=== PATIENT | female | born 1990 | race Caucasian/White ===

== ENCOUNTER 2020-02-28 20:55 | Emergency (ER) | payer BC, SELFPAY ==
[2020-02-28 20:59] VITALS: BP 124/90; PULSE 89; RESP 16; TEMP 36.6; O2SAT 97; BMI 18.5
--- NOTE | 2020-02-28 21:37 | W.ED.ABDPA2 ---
Documented by User: Pooja Perez MD 02/28/20 23:37 HPI - Abdominal Pain General: Chief Complaint: Abdominal Pain Stated Complaint: abd pain Time Seen by Provider: 02/28/20 21:14 History of Present Illness: HPI narrative: Patient is a 29 year old female presenting with burning abdominal pain for 2 days. She reports that the pain started on Monday evening and hasn't gone away. She has had similar pain in the past, but usually it resolves within half a day or so. She is worried that she might have an ulcer and takes a lot of ibuprofen. She has been seen here for this pain in the past and it improves with a GI cocktail. She does not take anything for acid reflux. 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 She is seeing the [facility] for that. She was diagnosed in November and had a 5 day course of IVIG which she says didn't really make a difference. She was supposed to go back in January but the visit was impossible due to the COVID outbreak. She is scheduled now to go back in another week and a half. MD elicited complaint: abdominal pain Pertinent past history: none Onset (ago): day(s) (2) Pain Consistency: constant Location: Epigastric Severity: similar to previous episodes Quality: burning Migration to: no migration Relieving factors: medication (pepto bismol) Associated Symptoms: Reports diarrhea (a little bit when the pain started ) and nausea; Denies chills, fever(s) and vomiting Review of Systems General: Reports: 10 or more systems reviewed and unremarkable except in HPI and below Const: Reports: body aches (chronic related to her CIDP), fatigue and malaise; Denies: fever(s) or chills Card: Denies: chest pain Resp: Denies: dyspnea, productive cough or non-productive cough GI: Reports: abdominal pain, nausea and diarrhea (a little bit when the pain started ); Denies: vomiting : Denies: difficulty voiding Neuro: Reports: headache(s), weakness in extremities (ongoing for the past year related to CIDP), difficulty walking and frequent falls PFSH ED PFSH: Social History Smoking and tobacco status: never smoked Physical Exam Const: COMMON NORMALS: no acute distress, patient oriented x3 and alert GENERAL APPEARANCE: cooperative HENMT: HEAD & SCALP: normal to inspection FACE & SINUS: normal facial exam Neck/C-Spine: COMMON NORMALS: supple and no JVD Chest: COMMONS NORMALS: normal inspection of the chest Resp: COMMON NORMALS: normal respiratory effort, No use of accessory muscles and clear to auscultation bilaterally AUSCULTATION: clear to auscultation bilaterally Cardio: COMMON NORMALS: no JVD, regular rate, regular rhythm and No murmurs present (Cardio) RATE: regular rate RHYTHM: regular rhythm GI: COMMON NORMALS: Normal to inspection, nondistended, normoactive bowel sounds present and Soft to palpation PALPATION: Yes Soft to palpation and Yes Tenderness to palpation present (GI) (epigastric) : COMMON NORMALS: Yes no CVA tenderness BLADDER/KIDNEY EXAM: Yes no CVA tenderness Back/Pelvis: COMMON NORMALS: no CVA tenderness Neuro: COMMON NORMALS: patient oriented x3 SENSORIUM/ORIENTATION: Yes alert Skin: COMMON NORMALS: no rashes or lesions noted GENERAL SKIN EXAM: no rashes or lesions noted Course ED course: Burning epigastric pain in a patient with history of a lot of ibuprofen use. In the past her symptoms have resolved with a GI cocktail - but did not today. She is diffusely tender on re-examination of her abdomen. Labs are unremarkable, but will get a CT due to her persistent pain and abdominal tenderness. Turned over to Dr. Menchaca. Vital Signs: Vital signs: Vital Signs Temperature 97.9 F 02/28/20 20:59 Pulse Rate 68 02/29/20 01:51 Respiratory Rate 16 02/29/20 01:51 Blood Pressure 132/76 02/29/20 01:51 Pulse Oximetry 99 02/29/20 01:51 MDM - Abdominal Pain Lab Data: Labs: Lab Results 02/28/20 02/28/20 02/28/20 Range/Units 21:11 21:38 21:38 WBC 9.0 (4.0-10.0) 10^3/ uL RBC 4.86 (4.1-5.3) 10^6/u L Hgb 13.6 (11.5-15.3) g/dL Hct 42.6 (37.0-47.0) % MCV 87.7 (81-99) fL MCH 28.0 (28.0-34.0) pg MCHC 31.9 (30.0-36.0) g/dL RDW 12.2 (12.1-15.1) % Plt Count 247 (130-400) 10^3/c mm MPV 10.8 H (7.4-10.4) fL Neut % (Auto) 72.6 % Lymph % (Auto) 18.9 % [place] % (Auto) 7.0 % Eos % (Auto) 0.9 % Baso % (Auto) 0.4 % Neut # (Auto) 6.5 (1.8-7.7) 10^3/u L Lymph # (Auto) 1.7 (0.8-4.8) 10^3/u L [place] # (Auto) 0.6 (0.2-0.9) 10^3/u L Eos # (Auto) 0.1 (0.0-0.8) 10^3/u L Baso # (Auto) 0.0 (0.0-0.1) 10^3/u L Nucleated RBC % (a uto) 0 % Nucleated RBCs # 0.0 /100WBC Sodium 138 (136-145) mmol/L Potassium 3.8 (3.5-5.1) mmol/L Chloride 101 (98-107) mmol/L Carbon Dioxide 23 (22-29) mmol/L Anion Gap 17.8 (5-19) BUN 10 (6-20) mg/dL Creatinine 0.5 (0.5-0.9) mg/dL GFR Calculation 148.0 H (90-130) mL/min Glucose 90 (65-115) mg/dL Calculated Osmolal ity 282 L (285-295) mOsm/k g Calcium 9.5 (8.5-10.5) mg/dL Total Bilirubin 0.6 (0.15-1.2) mg/dL AST 12 (0-32) U/L ALT 7 (0-33) U/L Alkaline Phosphata se 38 (35-105) IU/L Total Protein 7.7 (6.6-8.7) g/dL Albumin 5.4 H (3.5-5.2) g/dL Globulin 2.3 (1.3-4.6) g/dL Lipase 18 (13-60) U/L HCG, Qual (Negative) Urine Color Yellow (Yellow) Urine Appearance Sl hazy (CLEAR) Urine pH 5 (5-7) Ur Specific Gravit y 1.025 (1.005-1.030) Urine Protein Neg (Negative) Urine Glucose (UA) Norm (Normal) Urine Ketones 2+ H (Negative) Urine Blood Trace H (Negative) Urine Nitrate Negative (Negative) Urine Bilirubin Neg (NEGATIVE) Urine Urobilinogen Norm (Negative) mg/dL Ur Leukocyte Lexi ase Negative (Negative) Urine RBC Rare (0-2) /hpf Urine WBC 0-4 H (0-5) /hpf Ur Squamous Epith Cells 5-10 H (0-5) Urine Bacteria 1+ H (NONE) Urine Mucus 1+ 05/15/20 Range/Units 21:38 WBC (4.0-10.0) 10^3/ uL RBC (4.1-5.3) 10^6/u L Hgb (11.5-15.3) g/dL Hct (37.0-47.0) % MCV (81-99) fL MCH (28.0-34.0) pg MCHC (30.0-36.0) g/dL RDW (12.1-15.1) % Plt Count (130-400) 10^3/c mm MPV (7.4-10.4) fL Neut % (Auto) % Lymph % (Auto) % [place] % (Auto) % Eos % (Auto) % Baso % (Auto) % Neut # (Auto) (1.8-7.7) 10^3/u L Lymph # (Auto) (0.8-4.8) 10^3/u L [place] # (Auto) (0.2-0.9) 10^3/u L Eos # (Auto) (0.0-0.8) 10^3/u L Baso # (Auto) (0.0-0.1) 10^3/u L Nucleated RBC % (a uto) % Nucleated RBCs # /100WBC Sodium (136-145) mmol/L Potassium (3.5-5.1) mmol/L Chloride (98-107) mmol/L Carbon Dioxide (22-29) mmol/L Anion Gap (5-19) BUN (6-20) mg/dL Creatinine (0.5-0.9) mg/dL GFR Calculation (90-130) mL/min Glucose (65-115) mg/dL Calculated Osmolal ity (285-295) mOsm/k g Calcium (8.5-10.5) mg/dL Total Bilirubin (0.15-1.2) mg/dL AST (0-32) U/L ALT (0-33) U/L Alkaline Phosphata se (35-105) IU/L Total Protein (6.6-8.7) g/dL Albumin (3.5-5.2) g/dL Globulin (1.3-4.6) g/dL Lipase (13-60) U/L HCG, Qual Negative (Negative) Urine Color (Yellow) Urine Appearance (CLEAR) Urine pH (5-7) Ur Specific Gravit y (1.005-1.030) Urine Protein (Negative) Urine Glucose (UA) (Normal) Urine Ketones (Negative) Urine Blood (Negative) Urine Nitrate (Negative) Urine Bilirubin (NEGATIVE) Urine Urobilinogen (Negative) mg/dL Ur Leukocyte Lexi ase (Negative) Urine RBC (0-2) /hpf Urine WBC (0-5) /hpf Ur Squamous Epith Cells (0-5) Urine Bacteria (NONE) Urine Mucus Discharge Plan Discharge Patient Disposition: Home, Self-Care Clinical Impression: Abdominal pain Qualifiers: Abdominal location: generalized Qualified Code(s): R10.84 - Generalized abdominal pain Vomiting Qualifiers: Vomiting type: unspecified Vomiting Intractability: non-intractable Nausea presence: with nausea Qualified Code(s): R11.2 - Nausea with vomiting, unspecified Diarrhea Qualifiers: Diarrhea type: unspecified type Qualified Code(s): R19.7 - Diarrhea, unspecified Condition: Stable Prescriptions: New Zofran 4 mg tablet 4 mg PO Q6H PRN (Reason: nausea and vomiting) Qty: 20 RF: 0 Discharge Orders: Discharge Order (Routine); Ordered 02/29/20 Ordered By: Miri Menchaca Referrals: Marcelle Barfield MD [Primary Care Provider] - 1-3 days Discharge Diet: Advance as tolerated Discharge Activity: Resume usual activity Patient Instructions: Abdominal Pain (ED) Activity Restrictions/Additional Instructions: Please return to the ER immediately for any of the signs or symptoms listed on your discharge instruction sheets, worsening/changing of your symptoms, you are not getting better as quickly as expected, or for ANY other cause or concerns. Return to the ER immediately for increased pain, new onset of fever, return of vomiting, blood in her stools, or for any other cause for concern. Discharge Date/Time: 02/29/20 01:59 Sign Out Sign Out Data: Patient Sign Out occurred on 02/28/20 at 23:38. Patient's care was discussed, and care was transferred from to Miri Menchaca. Coding Level of Care Code ED Emergency Veterinary Assistant for Chg Fwd Exam Comprehensive Documented by User: Miri Menchaca 02/29/20 02:18 HPI - Abdominal Pain General: Chief Complaint: Abdominal Pain Stated Complaint: abd pain Time Seen by Provider: 02/28/20 21:14 [facility] ED PFSH: Social History Smoking and tobacco status: never smoked Course Vital Signs: Vital signs: Vital Signs Temperature 97.9 F 02/28/20 20:59 Pulse Rate 68 02/29/20 01:51 Respiratory Rate 16 02/29/20 01:51 Blood Pressure 132/76 02/29/20 01:51 Pulse Oximetry 99 02/29/20 01:51 MDM - Abdominal Pain MDM Narrative: Medical decision making narrative: 0056 -the patient is feeling much better and is ready to go home. On repeat examination she has no evidence of tenderness to her abdomen. She has not vomited or had diarrhea here. She states she is ready to go home and would like to leave with something for nausea and diarrhea. I will place her on Zofran and Bentyl. She does agree to return should her symptoms change or worsen in any way. Lab Data: Attestation: I reviewed the patient's lab results. Labs: Lab Results 02/28/20 02/28/20 02/28/20 Range/Units 21:11 21:38 21:38 WBC 9.0 (4.0-10.0) 10^3/ uL RBC 4.86 (4.1-5.3) 10^6/u L Hgb 13.6 (11.5-15.3) g/dL Hct 42.6 (37.0-47.0) % MCV 87.7 (81-99) fL MCH 28.0 (28.0-34.0) pg MCHC 31.9 (30.0-36.0) g/dL RDW 12.2 (12.1-15.1) % Plt Count 247 (130-400) 10^3/c mm MPV 10.8 H (7.4-10.4) fL Neut % (Auto) 72.6 % Lymph % (Auto) 18.9 % [place] % (Auto) 7.0 % Eos % (Auto) 0.9 % Baso % (Auto) 0.4 % Neut # (Auto) 6.5 (1.8-7.7) 10^3/u L Lymph # (Auto) 1.7 (0.8-4.8) 10^3/u L [place] # (Auto) 0.6 (0.2-0.9) 10^3/u L Eos # (Auto) 0.1 (0.0-0.8) 10^3/u L Baso # (Auto) 0.0 (0.0-0.1) 10^3/u L Nucleated RBC % (a uto) 0 % Nucleated RBCs # 0.0 /100WBC Sodium 138 (136-145) mmol/L Potassium 3.8 (3.5-5.1) mmol/L Chloride 101 (98-107) mmol/L Carbon Dioxide 23 (22-29) mmol/L Anion Gap 17.8 (5-19) BUN 10 (6-20) mg/dL Creatinine 0.5 (0.5-0.9) mg/dL GFR Calculation 148.0 H (90-130) mL/min Glucose 90 (65-115) mg/dL Calculated Osmolal ity 282 L (285-295) mOsm/k g Calcium 9.5 (8.5-10.5) mg/dL Total Bilirubin 0.6 (0.15-1.2) mg/dL AST 12 (0-32) U/L ALT 7 (0-33) U/L Alkaline Phosphata se 38 (35-105) IU/L Total Protein 7.7 (6.6-8.7) g/dL Albumin 5.4 H (3.5-5.2) g/dL Globulin 2.3 (1.3-4.6) g/dL Lipase 18 (13-60) U/L HCG, Qual (Negative) Urine Color Yellow (Yellow) Urine Appearance Sl hazy (CLEAR) Urine pH 5 (5-7) Ur Specific Gravit y 1.025 (1.005-1.030) Urine Protein Neg (Negative) Urine Glucose (UA) Norm (Normal) Urine Ketones 2+ H (Negative) Urine Blood Trace H (Negative) Urine Nitrate Negative (Negative) Urine Bilirubin Neg (NEGATIVE) Urine Urobilinogen Norm (Negative) mg/dL Ur Leukocyte Lexi ase Negative (Negative) Urine RBC Rare (0-2) /hpf Urine WBC 0-4 H (0-5) /hpf Ur Squamous Epith Cells 5-10 H (0-5) Urine Bacteria 1+ H (NONE) Urine Mucus 1+ 05/15/20 Range/Units 21:38 WBC (4.0-10.0) 10^3/ uL RBC (4.1-5.3) 10^6/u L Hgb (11.5-15.3) g/dL Hct (37.0-47.0) % MCV (81-99) fL MCH (28.0-34.0) pg MCHC (30.0-36.0) g/dL RDW (12.1-15.1) % Plt Count (130-400) 10^3/c mm MPV (7.4-10.4) fL Neut % (Auto) % Lymph % (Auto) % [place] % (Auto) % Eos % (Auto) % Baso % (Auto) % Neut # (Auto) (1.8-7.7) 10^3/u L Lymph # (Auto) (0.8-4.8) 10^3/u L [place] # (Auto) (0.2-0.9) 10^3/u L Eos # (Auto) (0.0-0.8) 10^3/u L Baso # (Auto) (0.0-0.1) 10^3/u L Nucleated RBC % (a uto) % Nucleated RBCs # /100WBC Sodium (136-145) mmol/L Potassium (3.5-5.1) mmol/L Chloride (98-107) mmol/L Carbon Dioxide (22-29) mmol/L Anion Gap (5-19) BUN (6-20) mg/dL Creatinine (0.5-0.9) mg/dL GFR Calculation (90-130) mL/min Glucose (65-115) mg/dL Calculated Osmolal ity (285-295) mOsm/k g Calcium (8.5-10.5) mg/dL Total Bilirubin (0.15-1.2) mg/dL AST (0-32) U/L ALT (0-33) U/L Alkaline Phosphata se (35-105) IU/L Total Protein (6.6-8.7) g/dL Albumin (3.5-5.2) g/dL Globulin (1.3-4.6) g/dL Lipase (13-60) U/L HCG, Qual Negative (Negative) Urine Color (Yellow) Urine Appearance (CLEAR) Urine pH (5-7) Ur Specific Gravit y (1.005-1.030) Urine Protein (Negative) Urine Glucose (UA) (Normal) Urine Ketones (Negative) Urine Blood (Negative) Urine Nitrate (Negative) Urine Bilirubin (NEGATIVE) Urine Urobilinogen (Negative) mg/dL Ur Leukocyte Lexi ase (Negative) Urine RBC (0-2) /hpf Urine WBC (0-5) /hpf Ur Squamous Epith Cells (0-5) Urine Bacteria (NONE) Urine Mucus Imaging Data ^: CT Abd/Pel: Radiologist's impression: [address] [address] [address] Scan Report Signed Patient: Sis Desouza Unit #: [id number] : 1990 Age/Sex: 29 / F ADM Date: 02/28/20 Loc: ER Room/Bed: Attending Dr: Ordering Provider/Ordering MD: Pooja Perez MD Date of Service: 02/28/20 Procedure(s): CT abdomen pelvis w con* [id number] Accession Number(s): [id number] Report Number: [id number] PROCEDURE INFORMATION: Exam: CT Abdomen And Pelvis With Contrast Exam date and time: 02/28/2020 12:13 AM Age: 29 years old Clinical indication: Abdominal pain; Generalized; Additional info: Abdominal pain, fever TECHNIQUE: Imaging protocol: Computed tomography of the abdomen and pelvis with intravenous contrast. Radiation optimization: All CT scans at this facility use at least one of these dose optimization techniques: automated exposure control; mA and/or kV adjustment per patient size (includes targeted exams where dose is matched to clinical indication); or iterative reconstruction. Contrast material: OMNI 300; Contrast volume: 75 ml; Contrast route: 20G; COMPARISON: US gall bladder [id number] 07/31/2016 11:04 AM RADIATION DOSE METRICS: Total DLP: 532.42 mGy-cm FINDINGS: Lungs: Limited assessment lung bases fails to reveal evidence for active cardiopulmonary process. Mild pectus carinatum. Liver: Mild periportal edema. This is a nonspecific finding. Clinical significance indeterminate. Liver otherwise unremarkable and normal. Gallbladder and bile ducts: Gallbladder free of cholelithiasis. No gallbladder wall thickening or pericholecystic fluid. No intra or extrahepatic biliary ectasia. Pancreas: Normal. No ductal dilation. Spleen: Normal. No splenomegaly. Adrenals: Normal. No mass. Kidneys and ureters: Normal. No hydronephrosis. Stomach and bowel: Nonobstructive bowel pattern. No evidence for diverticulosis coli or diverticulitis. No visible adynamic or reactive ileus. Appendix: The appendix is visualized and is noninflamed. Intraperitoneal space: No visible mesenteritis or mesenteric lymphadenitis. Vasculature: Unremarkable. No abdominal aortic aneurysm. Lymph nodes: Unremarkable. No enlarged lymph nodes. Bladder: Unremarkable as visualized. Reproductive: Unremarkable as visualized. Bones/joints: Mild scoliotic curvature. No visible active or acute osseous pathology. Soft tissues: Unremarkable. CT/CT abdomen pelvis w con* [id number] IMPRESSION: No visible evidence of active or acute abdominal or pelvic pathologic process. Radiation Dose CTDIVOL = (mGy): DLP = 532.42 (mGy-cm) Dictated By: Amanuel Weaver Signed By: Amanuel Weaver Signed Date/Time: 02/29/20 0048 DD/ Discharge Plan Discharge Patient Disposition: Home, Self-Care Clinical Impression: Abdominal pain Qualifiers: Abdominal location: generalized Qualified Code(s): R10.84 - Generalized abdominal pain Vomiting Qualifiers: Vomiting type: unspecified Vomiting Intractability: non-intractable Nausea presence: with nausea Qualified Code(s): R11.2 - Nausea with vomiting, unspecified Diarrhea Qualifiers: Diarrhea type: unspecified type Qualified Code(s): R19.7 - Diarrhea, unspecified Condition: Stable Prescriptions: New Zofran 4 mg tablet 4 mg PO Q6H PRN (Reason: nausea and vomiting) Qty: 20 RF: 0 Discharge Orders: Discharge Order (Routine); Ordered 02/29/20 Ordered By: Miri Menchaca Referrals: Marcelle Barfield MD [Primary Care Provider] - 1-3 days Discharge Diet: Advance as tolerated Discharge Activity: Resume usual activity Patient Instructions: Abdominal Pain (ED) Activity Restrictions/Additional Instructions: Please return to the ER immediately for any of the signs or symptoms listed on your discharge instruction sheets, worsening/changing of your symptoms, you are not getting better as quickly as expected, or for ANY other cause or concerns. Return to the ER immediately for increased pain, new onset of fever, return of vomiting, blood in her stools, or for any other cause for concern. Discharge Date/Time: 02/29/20 01:59 Sign Out Sign Out Data: Patient Sign Out occurred on 02/28/20 at 23:38. Patient's care was discussed, and care was transferred from to Miri Menchaca. Coding Level of Care Code ED Emergency Veterinary Assistant for Lydiag Fwd Exam Comprehensive
[2020-02-28] MEDS: famotidine 20 mg/2 mL INJ 40 MG IVP (21:48)
[2020-02-28] MEDS: lidocaine 2% viscous 15 ML, aluminum-mag hydrox-simethicon 30 ML, sucralfate oral liq 1 GM PO (21:48)
[2020-02-28 21:58] LABS: Basophils % 0.4 %; Eosinophils # 0.1 10^3/uL (0.0-0.8); Eosinophils % 0.9 %; Hematocrit 42.6 % (37.0-47.0); Hemoglobin 13.6 g/dL (11.5-15.3); Lymphocytes # 1.7 10^3/uL (0.8-4.8); Lymphocytes % 18.9 %; Mean Corpuscular HGB Conc 31.9 g/dL (30.0-36.0); Mean Corpuscular Volume 87.7 fL (81-99); Mean Platelet Volume 10.8 fL (7.4-10.4); Monocytes # 0.6 10^3/uL (0.2-0.9); Neutrophils # 6.5 10^3/uL (1.8-7.7); Neutrophils % 72.6 %; Nucleated Red Blood Cells % 0 %; Platelet Count 247 10^3/cmm (130-400); Red Blood Count 4.86 10^6/uL (4.1-5.3); Red Cell Distribution Width 12.2 % (12.1-15.1)
[2020-02-28 22:17] LABS: Add Urine Microscopic? YES; Bilirubin Urine Neg (NEGATIVE); Blood Urine Trace (Negative); Glucose Urine UA Norm (Normal); Ketones Urine 2+ (Negative); Leukocyte Esterase Urine Negative (Negative); Nitrate Urine Negative (Negative); Protein Urine Neg (Negative); Specific Gravity, Urine 1.025 (1.005-1.030); Urine Appearance SL Hazy (CLEAR); Urine Color Yellow (Yellow); Urobilinogen Urine Norm (Negative); pH Urine 5 (5-7)
[2020-02-28 22:18] LABS: Bacteria Urine 1+; Mucus Urine 1+; RBC Urine RARE /hpf (0-2); WBC Urine 0-4 /hpf (0-5)
[2020-02-28 22:22] LABS: Alanine Aminotransferase 7 U/L (0-33); Albumin Level 5.4 g/dL (3.5-5.2); Alkaline Phosphatase 38 IU/L (35-105); Anion Gap 17.8 (5-19); Aspartate Amino Transferase 12 U/L (0-32); Blood Urea Nitrogen 10 mg/dL (6-20); Calcium 9.5 mg/dL (8.5-10.5); Carbon Dioxide 23 mmol/L (22-29); Chloride 101 mmol/L (98-107); Globulin 2.3 g/dL (1.3-4.6); Glucose 90 mg/dL (65-115); Lipase 18 U/L (13-60); Osmolality Calculated 282 mOsm/kg (285-295); Potassium 3.8 mmol/L (3.5-5.1); Sodium 138 mmol/L (136-145); Total Bilirubin 0.6 mg/dL (0.15-1.2); Total Protein 7.7 g/dL (6.6-8.7)
[2020-02-28] MEDS: sodium chloride 0.9% 1,000 ML 999 ML IV (22:26)
[2020-02-28 22:28] LABS: HCG, Serum Qual Negative (Negative)
[2020-02-28] MEDS: acetaminophen 500 mg Tablet 1000 MG PO (22:30)
[2020-02-28 22:59] VITALS: BP 136/91; PULSE 75; RESP 18; O2SAT 100
[2020-02-28] MEDS: ondansetron 2 mg/ML SDV 2 mL 4 MG IVP (23:12)
[2020-02-28] MEDS: morphine 4 mg/mL SDV 1 mL IVP (23:12)
--- NOTE | 2020-02-28 23:12 | CTR_ITS ---
PROCEDURE INFORMATION: Exam: CT Abdomen And Pelvis With Contrast Exam date and time: 02/28/2020 12:13 AM Age: 29 years old Clinical indication: Abdominal pain; Generalized; Additional info: Abdominal pain, fever TECHNIQUE: Imaging protocol: Computed tomography of the abdomen and pelvis with intravenous contrast. Radiation optimization: All CT scans at this facility use at least one of these dose optimization techniques: automated exposure control; mA and/or kV adjustment per patient size (includes targeted exams where dose is matched to clinical indication); or iterative reconstruction. Contrast material: OMNI 300; Contrast volume: 75 ml; Contrast route: 20G; COMPARISON: US gall bladder [id number] 07/31/2016 11:04 AM RADIATION DOSE METRICS: Total DLP: 532.42 mGy-cm FINDINGS: Lungs: Limited assessment lung bases fails to reveal evidence for active cardiopulmonary process. Mild pectus carinatum. Liver: Mild periportal edema. This is a nonspecific finding. Clinical significance indeterminate. Liver otherwise unremarkable and normal. Gallbladder and bile ducts: Gallbladder free of cholelithiasis. No gallbladder wall thickening or pericholecystic fluid. No intra or extrahepatic biliary ectasia. Pancreas: Normal. No ductal dilation. Spleen: Normal. No splenomegaly. Adrenals: Normal. No mass. Kidneys and ureters: Normal. No hydronephrosis. Stomach and bowel: Nonobstructive bowel pattern. No evidence for diverticulosis coli or diverticulitis. No visible adynamic or reactive ileus. Appendix: The appendix is visualized and is noninflamed. Intraperitoneal space: No visible mesenteritis or mesenteric lymphadenitis. Vasculature: Unremarkable. No abdominal aortic aneurysm. Lymph nodes: Unremarkable. No enlarged lymph nodes. Bladder: Unremarkable as visualized. Reproductive: Unremarkable as visualized. Bones/joints: Mild scoliotic curvature. No visible active or acute osseous pathology. Soft tissues: Unremarkable. CT/CT abdomen pelvis w con* [id number] IMPRESSION: No visible evidence of active or acute abdominal or pelvic pathologic process. Radiation Dose CTDIVOL = (mGy): DLP = 532.42 (mGy-cm)
[2020-02-29] MEDS: iohexol 300 mg/mL 100 mL Btl IV (00:31)
[2020-02-29 01:28] VITALS: BP 138/86; PULSE 68; RESP 16; O2SAT 99
[2020-02-29 01:51] VITALS: BP 132/76; PULSE 68; RESP 16; O2SAT 99
== END 2020-02-29 01:59 | disposition home or self-care (01) ==
PROVIDERS: Emergency Medicine; Emergency Provider Emergency Medicine; PCP Pediatrics
DX: R10.84 Generalized abdominal pain (principal); R11.2 Nausea with vomiting, unspecified; R19.7 Diarrhea, unspecified
CPT/HCPCS: 12345; 74177; 80053; 81001; 83690; 84703; 85025; 96361; 96374; 96375; 99283; A9270; J2270; J2405; J3490; J7030; Q9967